=== PATIENT | female | born 1995 | race Caucasian/White ===

== ENCOUNTER → 2017-11-06 | Outpatient (CLI) | payer BC ==
[~2017-11-06] MED LIST: ANAPROX DS550 MG PO; BACTRIM DS 8001 TA1 PO; CELEXA10 MG PO; CIPRODEX 0.3%-7.5 ML OT; CLARITIN-D 10 M1 T21 PO; CLARITIN-D 12 H1 TAB PO; CLARITIN10 MG PO; DEPO-PROVERA; FLEXERIL5 MG PO; MACROBID100 M1 PO; MOTRIN400 MG PO; MOTRIN800 MG PO; MULTIVITAMIN FO1 CAP PO; NAPROSYN500 MG PO; NORFLEX100 MG PO; OMNICEF300 MG PO; PREDNICOT20 MG PO; PRELONE5 MG/5 ML PO; PYRIDIUM200 MG PO; VITAMIN D; ZITHROMAX Z PA250 MG PO
== END | disposition home or self-care (01) ==
LOC: RAD 10:32
DX: S39.012A Strain of muscle, fascia and tendon of lower back, initial encounter (principal); M47.896 Other spondylosis, lumbar region; X58.XXXA Exposure to other specified factors, initial encounter; Y93.89 Activity, other specified; Y92.89 Other specified places as the place of occurrence of the external cause; Y99.8 Other external cause status

== ENCOUNTER 2019-02-17 11:46 | Emergency (ER) | payer BC ==
[~2019-02-17] VITALS: Ht 160 cm; Wt 59.0 kg
[2019-02-17 13:49] LABS: BILIRUBIN NEGATIVE (NEGATIVE); BLOOD NEGATIVE (NEGATIVE); CLARITY SL CLOUDY (CLEAR); COLOR YELLOW (YELLOW); GLUCOSE NEGATIVE (NEGATIVE); KETONE NEGATIVE (NEGATIVE); LEUKO ESTERASE NEGATIVE (NEGATIVE); NITRITE NEGATIVE (NEGATIVE); PH 5.5 (5.0-9.0); SPECIFIC GRAVITY >= 1.030 (1.005-1.030); UROBILINOGEN 0.2 E.U./dl (0.2-1.0)
[2019-02-17 14:01] LABS: BACTERIA 2+; MUCOUS 2+
[2019-02-17] MEDS ORDERED: ZOFRAN4 MG PO (14:59)
== END 2019-02-17 15:09 | disposition home or self-care (01) ==
LOC: ED 11:46
PROVIDERS: Nurse Practitioner Family
DX: K52.9 Noninfective gastroenteritis and colitis, unspecified (principal); Z88.0 Allergy status to penicillin; Z88.1 Allergy status to other antibiotic agents; Z79.899 Other long term (current) drug therapy